=== PATIENT | female | born 1935 | race Caucasian/White ===

== ENCOUNTER → 2020-10-15 | Outpatient (CLI) | payer MEDICARE, OTHER | LOC: RT 15:19 | DX: Z01.810 Encounter for preprocedural cardiovascular examination (principal); Z01.812 Encounter for preprocedural laboratory examination | CPT/HCPCS: 93005 ==

== ENCOUNTER → 2020-10-19 | Outpatient (CLI) | payer MEDICARE, OTHER | LOC: KOH-I 10-09 13:30 | DX: R13.10 Dysphagia, unspecified (principal); E04.1 Nontoxic single thyroid nodule | CPT/HCPCS: 76536 ==

== ENCOUNTER 2021-08-16 11:22 | Emergency (ER) | payer MEDICARE, OTHER ==
[2021-08-16 12:25] LABS: HEMOGLOBIN 14.9 gm/dl (12.3-15.3); RED BLOOD COUNT 4.68 M/UL (4.00-5.10); WHITE BLOOD COUNT 6.8 K/UL (4.5-11.0)
[2021-08-16 12:53] LABS: BUN/CREATININE RATIO 18 (0-10)
[2021-08-16] MEDS ORDERED: MEDI-MECLIZINE25 MG PO (16:34)
== END 2021-08-16 17:52 | disposition home or self-care (01) ==
LOC: ER1 11:22
PROVIDERS: Physician Assistant
DX: R42 Dizziness and giddiness (principal); R91.1 Solitary pulmonary nodule; Z90.710 Acquired absence of both cervix and uterus; H55.00 Unspecified nystagmus; Z20.822 Contact with and (suspected) exposure to COVID-19
CPT/HCPCS: 70450; 71045; 71046; 80053; 81001; 82550; 82553; 83874; 84439; 84443; 84484; 85025; 87086; 93005; 99284; U0002

== ENCOUNTER → 2021-08-21 | Outpatient (CLI) | payer MEDICARE, OTHER ==
[~2021-08-21] MED LIST: MEDI-MECLIZINE25 MG PO
== END ==
LOC: MRI 08:30
DX: R42 Dizziness and giddiness (principal); G31.9 Degenerative disease of nervous system, unspecified; R93.0 Abnormal findings on diagnostic imaging of skull and head, not elsewhere classified
CPT/HCPCS: 70553; A9577

== ENCOUNTER 2022-01-11 21:13 | Emergency (ER) | payer MEDICARE, OTHER | END 2022-01-11 23:06 | disposition home or self-care (01) | LOC: ER1 21:13 | DX: S92.512A Displaced fracture of proximal phalanx of left lesser toe(s), initial encounter for closed fracture (principal); Z88.0 Allergy status to penicillin; W23.0XXA Caught, crushed, jammed, or pinched between moving objects, initial encounter; Y92.009 Unspecified place in unspecified non-institutional (private) residence as the place of occurrence of the external cause | CPT/HCPCS: 73630; 99283 ==

== ENCOUNTER → 2022-01-28 | Outpatient (CLI) | payer MEDICARE, OTHER | LOC: KOH-I 13:55 | DX: M79.672 Pain in left foot (principal); S92.512A Displaced fracture of proximal phalanx of left lesser toe(s), initial encounter for closed fracture; X58.XXXA Exposure to other specified factors, initial encounter | CPT/HCPCS: 73630 ==

== ENCOUNTER 2022-02-22 15:11 | Emergency (ER) | payer MEDICARE, OTHER | END 2022-02-22 17:14 | disposition home or self-care (01) | LOC: ER1 15:11 | DX: S92.512A Displaced fracture of proximal phalanx of left lesser toe(s), initial encounter for closed fracture (principal); Z88.0 Allergy status to penicillin; W19.XXXA Unspecified fall, initial encounter; Y92.009 Unspecified place in unspecified non-institutional (private) residence as the place of occurrence of the external cause | CPT/HCPCS: 73630; 99283 ==

== ENCOUNTER → 2022-02-27 | Outpatient (CLI) | payer MEDICARE, OTHER | LOC: KOH-I 12:47 | DX: S92.912A Unspecified fracture of left toe(s), initial encounter for closed fracture (principal) | CPT/HCPCS: 73630 ==